=== PATIENT | male | born 1955 ===

== ENCOUNTER 2025-06-08 06:14 | Day surgery (SDC) | payer OTHER, SELFPAY ==
[2025-06-08 09:55] VITALS: BMI 24.3
[2025-06-08 10:01] VITALS: BMI 24.3
[2025-06-08 10:02] VITALS: BP 113/77
[2025-06-08 13:01] VITALS: BP 107/76
[2025-06-08 13:15] VITALS: BP 123/69
[2025-06-08 13:31] VITALS: BP 105/65
[2025-06-08 13:45] VITALS: BP 114/63
[2025-06-08 14:00] VITALS: BP 124/78
== END 2025-06-08 14:26 | disposition home or self-care (01) ==
LOC: SDS 06:14
PROVIDERS: ATTENDING PHYSICIAN Internal Medicine Gastroenterology
DX: K86.9 Disease of pancreas, unspecified (principal); K22.89 Other specified disease of esophagus; K21.00 Gastro-esophageal reflux disease with esophagitis, without bleeding; K44.9 Diaphragmatic hernia without obstruction or gangrene; K31.89 Other diseases of stomach and duodenum; K21.9 Gastro-esophageal reflux disease without esophagitis
CPT/HCPCS: 43242; 43239; 88173; 88305; 88341; 88342